=== PATIENT | female | born 1995 | race African-American/Black ===

== ENCOUNTER 2017-07-19 14:27 | Emergency (ER) | payer SELFPAY ==
[2017-07-19 14:49] LABS: Bilirubin Negative (Negative); Blood, Urine Negative (Negative); Glucose, Urine (Dipstick) Negative (Negative); Ketone, Urine Trace mg/dL (Negative); Nitrite Negative (Negative); Protein, Urine (Dipstick) Negative (Neg-Trace)
[2017-07-19 14:52] LABS: Bacteria/HPF 1+ HPF (None Seen); Hyaline Casts/LPF 4-6 HYALINE CAST LPF (0-3 Hyaline); WBC/HPF 21-50 HPF (0-3)
[2017-07-19] MEDS ORDERED: Ondansetron ODT 4 MG TAB ONE (15:17)
== END 2017-07-19 15:09 | disposition home or self-care (01) ==
LOC: ERS 14:27
DX: O23.41 Unspecified infection of urinary tract in pregnancy, first trimester (principal); Z3A.01 Less than 8 weeks gestation of pregnancy
CPT/HCPCS: 81003; 81015; 81025; 99284; Q0162

== ENCOUNTER 2017-08-04 17:58 | Emergency (ER) | payer SELFPAY ==
[2017-08-04] MEDS ORDERED: Ondansetron HCl/PF 4 MG/2 ML Vial ONE (18:43)
[2017-08-04] MEDS ORDERED: Acetaminophen 500 MG TAB ONE (18:43)
[2017-08-04 18:55] LABS: #Eosinphils 0.1 thou/uL (0.0-0.7); #Lymphocytes 1.7 thou/uL (1.20-3.40); #Monocytes 0.4 thou/uL (0.11-0.59); %Basophils 0.1 % (0.0-1.0); %Lymphocytes 27.1 % (21.0-51.0); %Monocytes 6.6 % (0.0-10.0); Hematocrit 40.1 % (36.0-47.0); Mean Platelet Volume 7.8 fL (7.4-10.4); Red Blood Cell (RBC) Count 4.63 mill/uL (4.20-5.40); White Blood Cell (WBC) Count 6.1 thou/uL (4.8-10.8)
[2017-08-04 19:10] LABS: Bilirubin Negative (Negative); Blood, Urine Negative (Negative); Glucose, Urine (Dipstick) Negative (Negative); Ketone, Urine Negative (Negative); Nitrite Negative (Negative); Protein, Urine (Dipstick) Negative (Neg-Trace)
[2017-08-04 19:17] LABS: Bacteria/HPF Rare-Few HPF (None Seen); Hyaline Casts/LPF 4-6 HYALINE CAST LPF (0-3 Hyaline); WBC/HPF 21-50 HPF (0-3)
== END 2017-08-04 21:05 | disposition home or self-care (01) ==
LOC: ERS 17:58
DX: O23.41 Unspecified infection of urinary tract in pregnancy, first trimester (principal); O99.89 Other specified diseases and conditions complicating pregnancy, childbirth and the puerperium; R51 Headache; Z3A.01 Less than 8 weeks gestation of pregnancy
CPT/HCPCS: 36415; 81003; 81015; 84702; 85025; 96361; 96374; J2405

== ENCOUNTER 2017-08-07 12:54 | Emergency (ER) | payer MEDICAID, SELFPAY ==
[2017-08-07 13:38] LABS: #Eosinphils 0.1 thou/uL (0.0-0.7); #Lymphocytes 1.1 thou/uL (1.20-3.40); #Monocytes 0.3 thou/uL (0.11-0.59); #Neutrophils 5.9 thou/uL (1.40-6.50); %Basophils 0.6 % (0.0-1.0); %Eosinophils 1.2 % (0.0-10.0); %Lymphocytes 15.1 % (21.0-51.0); %Monocytes 4.1 % (0.0-10.0); Hematocrit 41.5 % (36.0-47.0); Mean Platelet Volume 8.2 fL (7.4-10.4); Red Blood Cell (RBC) Count 4.81 mill/uL (4.20-5.40); White Blood Cell (WBC) Count 7.4 thou/uL (4.8-10.8)
--- NOTE | 2017-08-07 14:34 | ULT ---
ULTRASOUND PELVIC ULTRASOUND TRANSVAGINAL DOPPLER DUPLEX: DATE: 08-07-17 HISTORY: 22-year-old female in first trimester of with sudden onset of vaginal bleeding. TECHNIQUE: Transabdominal transducer used to evaluate intrapelvic contents using the urinary bladder as an acou stic window. Endovaginal transducer used to visualize intrapelvic contents in greater detail. Color flow Doppler and Pulsed Doppler spectral waveform analysis of ovaries. FINDINGS: There is an intrauterine gestational sac containing an embryonic pole with crown-rump length of 0.8 cm, corresponding to 6 w 5 d. heart rate is 120 bpm. Adjacent to the gestational sac, there is a patchy, irregular, approximately 1.5 x 0.5 cm region of moderately low echogenicity. It is uncertain whether this is a small subchorionic hemorrhage or not. No significant free fluid in the cul-de-sac. Left ovary could not be found. There is a structure me asuring 2.5 x 2.5 x 3 cm which was labeled as the right ovary by the secured entrance monitor. No color flow is s een within it, but there is pulse doppler flow demonstrated in it. It does not have the typical appe arance for an ovary, especially on the sagittal images, on which its margins appear to be very irreg ular. IMPRESSION: 1. Live first trimester intrauterine gestation estimated to be 6 weeks 5 days. 2. Questionable small subchorionic hemorrhage versus artifact. PACO Hazel POS: MARSHALL
== END 2017-08-07 16:13 | disposition home or self-care (01) ==
LOC: ERS 12:54
DX: O20.0 Threatened abortion (principal); Z3A.01 Less than 8 weeks gestation of pregnancy
CPT/HCPCS: 36415; 76856; 84702; 85025; 86900; 86901; 87480; 87491; 87510; 87591; 87660; 93976

== ENCOUNTER 2017-08-14 01:06 | Emergency (ER) | payer MEDICAID, OTHER ==
[2017-08-14] MEDS ORDERED: Ondansetron HCl/PF 4 MG/2 ML Vial ONE (01:49)
[2017-08-14 02:39] LABS: #Eosinphils 0.2 thou/uL (0.0-0.7); #Lymphocytes 1.9 thou/uL (1.20-3.40); #Monocytes 0.5 thou/uL (0.11-0.59); #Neutrophils 4.7 thou/uL (1.40-6.50); %Basophils 0.1 % (0.0-1.0); %Eosinophils 2.8 % (0.0-10.0); %Lymphocytes 26.2 % (21.0-51.0); %Monocytes 6.7 % (0.0-10.0); Hematocrit 38.3 % (36.0-47.0); Mean Platelet Volume 8.7 fL (7.4-10.4); Red Blood Cell (RBC) Count 4.38 mill/uL (4.20-5.40); White Blood Cell (WBC) Count 7.3 thou/uL (4.8-10.8)
--- NOTE | 2017-08-14 08:58 | ULT ---
PRELIMINARY REPORT/[facility]/EMERGENCY AFTER HOURS PROCEDURE: EXAM: US After First Trimester CLINICAL HISTORY: 22 years old, female; Pain and signs and symptoms; Lmp or gestational age (in weeks): 7w4d; Antepart um complications; Bleeding; complicated by abdominal or pelvic pain; Other: Ml to llq pelv ic pain; ; Patient HX: Vaginal bleeding x 1 day TECHNIQUE: Real-time obstetrical ultrasound of the maternal pelvis and a second or third trimester wi th image documentation. COMPARISON: No relevant prior studies available. FINDINGS: Fetus: Single live intrauterine gestation. Candel[place] Aren[place]-rump length correlates with estimated gestational a ge of 7 weeks 4 days. Heart rate: heart rate 153 beats per minute. Amniotic fluid: Unremarkable. MATERNAL: Uterus: Unremarkable. No myometrial mass. Adnexa: Normal left ovary with normal Doppler signal. Normal right ovary with normal Doppler signal. Free fluid: No perceptible free fluid. IMPRESSION: Single live intrauterine gestation as above. EXAM: US Pelvis, Transvaginal EXAM DATE/TIME: Exam ordered 08/14/2017 2:07 AM CLINICAL HISTORY: 22 years old, female; Pain and signs and symptoms; Lmp or gestational age (in weeks): 7w4d; Antepart um complications; Bleeding; complicated by abdominal or pelvic pain; Other: Ml to llq pelv ic pain; ; Patient HX: Vaginal bleeding x 1 day TECHNIQUE: Real-time transvaginal pelvic ultrasound (complete) with image documentation. Transvaginal imaging w as used for better evaluation of the endometrium and adnexa. COMPARISON: No relevant prior studies available. FINDINGS: Uterus/cervix: Unremarkable. Normal endometrial stripe thickness. No myometrial mass. Right ovary: Normal right ovary with normal Doppler signal. Normal blood flow. Left ovary: Normal left ovary with normal Doppler signal. Normal blood flow. Free fluid: Trace free fluid in the posterior pelvic cul-de-sac. Other findings: Equivocal small subchorionic hematoma. Single live intrauterine gestation. Crownrump length correlates with estimated gestational age of 7 weeks 4 days. heart rate 149 beats per minute. IMPRESSION: 1. Single live intrauterine gestation as above. 2. Equivocal small subchorionic hematoma. Thank you for allowing us to participate in the care of your patient. Dictated and Authenticated by: Earl Collazo MD 08/14/2017 3:03 AM Central Time ([place] \T\ [place]) FINAL REPORT EMERGENCY AFTER HOURS PELVIC ULTRASOUND: Date: 08/14/17 HISTORY: Vaginal bleeding. Nausea and vomiting. IMPRESSION: 1. Evidence of single intrauterine gestation with pole and yolk sac visualized. Cardiac Doppl er does demonstrate heart tones with heart rate of 149 beats/minute. 2. Gestational age by measurement of crown-rump length is 7 weeks and 4 days. 3. Hypoechoic area within the endometrial canal which is in a subchorionic location and distal to t he level of the gestational sac, which may be related to hemorrhage in this region. This measures 3. 3 cm x 0.7 cm. 4. Normal appearing bilateral ovaries with arterial flow documented in each ovary. Findings are in agreement with the preliminary report by [facility]. [facility] notes that subchorionic hemorrha ge is an equivocal finding; however, images do suggest there is evidence of a subchorionic hemorrhag e. Continued follow-up evaluation is recommended. POS: MARSHALL
== END 2017-08-14 03:35 | disposition home or self-care (01) ==
LOC: ERS 01:06
DX: O20.0 Threatened abortion (principal); Z3A.01 Less than 8 weeks gestation of pregnancy
CPT/HCPCS: 36415; 76856; 84702; 85025; 96361; 96374; J2405

== ENCOUNTER 2017-10-23 18:07 | Emergency (ER) | payer MEDICAID, OTHER ==
[2017-10-23 18:34] LABS: Bilirubin Negative (Negative); Blood, Urine Negative (Negative); Clarity Slightly Cloudy (Clear); Glucose, Urine (Dipstick) Negative (Negative); Leukocyte Negative (Negative); Nitrite Negative (Negative); Protein, Urine (Dipstick) 30 mg/dL (Neg-Trace); Specific Gravity, Urine 1.025 (1.002-1.036); pH, Urine 6.5 (5.0-9.0)
[2017-10-23 18:43] LABS: Bacteria/HPF 1+ HPF (None Seen); Hyaline Casts/LPF 0-3 HYALINE CAST LPF (0-3 Hyaline); RBC/HPF 0-3 HPF (0-3)
[2017-10-23 18:56] LABS: Crystals/HPF 1+ SODIUM URATE HPF (Negative)
== END 2017-10-23 20:16 | disposition home or self-care (01) ==
LOC: ERS 18:07
DX: O23.42 Unspecified infection of urinary tract in pregnancy, second trimester (principal); Z3A.19 19 weeks gestation of pregnancy
CPT/HCPCS: 81003; 81015; 99284

== ENCOUNTER 2017-11-28 16:42 | Day surgery (SDC) | payer OTHER ==
[2017-11-28 17:35] VITALS: BMI 25.8
--- NOTE | 2017-11-28 18:06 | PDOC.LDHP ---
Labor and Delivery H&P Chief complaint: other (cramping, rash) HPI: 22 y/o at 23w4d, patient of Dr. Wen, presents with cramping that started this afternoon. She reports she woke up around 1pm and started having small cramps lasting 3-4 seconds a every 3 hours. Denies VB, LOF, ctx, or UTI sx. +FM. Also has a 2 week history of itchy rash over right breast, spreading to left, and to groin. Denies itching of palms or soles. Has not taken anything for symptoms. ROS neg for HEENT, cv, pulm, gi, gu, neuro, psych, musculoskeletal or constitutional symptoms other than mentioned above. OB History Details: 1 prior term Current complications: none Current medications: pre- vitamins Previous surgical history: none Allergies/Adverse Reactions: Allergies Allergy/AdvReac Type Severity Reaction Status Date / Time No Known Allergies Allergy Verified 07/28/14 23:36 Social history: none - Physical Exam Vital signs reviewed and normal: yes General: NAD, resting, other (multiple erythematous patches with excoriations over right breast, minimally over left breast, and left groin.) Lungs: nonlabored breathing Abdomen: gravid Extremeties: no edema FHT: category 1 (140s, mod variability) [place] contractions every: none - Vaginal Exam cm dilated: 0 Effacement: 0% Station: -3 - Assessment 22 y/o at 23w4d with maculopapular rash and mild abdominal cramping. No e/o PTL. Vitals wnl. status reassuring. - Plan -: D/c home with precautions. Comfort measures with Benadryl and Tylenol discussed. Will follow up as scheduled on Friday with Dr. eWn for further evaluation of rash.
[2017-11-28] MEDS ORDERED: FLU VACC QS2017-18 36 mo. & older 0.5 ML SYRINGE IM ONE (18:30)
== END 2017-11-28 18:14 | disposition home or self-care (01) ==
LOC: L&D/OP 16:42
PROVIDERS: ATTEND Family Medicine
DX: O99.89 Other specified diseases and conditions complicating pregnancy, childbirth and the puerperium (principal); R10.9 Unspecified abdominal pain; R21 Rash and other nonspecific skin eruption; Z79.899 Other long term (current) drug therapy; Z3A.23 23 weeks gestation of pregnancy
CPT/HCPCS: 99285

== ENCOUNTER 2017-12-07 18:16 | Emergency (ER) | payer OTHER ==
[2017-12-07] MEDS ORDERED: Acetaminophen 500 MG TAB ONE (19:48)
[2017-12-07 20:02] LABS: Bilirubin Negative (Negative); Blood, Urine Negative (Negative); Clarity CLEAR (Clear); Glucose, Urine (Dipstick) Negative (Negative); Leukocyte Trace (Negative); Nitrite Negative (Negative); Protein, Urine (Dipstick) Negative (Neg-Trace); Specific Gravity, Urine 1.011 (1.002-1.036); pH, Urine 6.5 (5.0-9.0)
[2017-12-07 20:04] LABS: Bacteria/HPF 1+ HPF (None Seen); Hyaline Casts/LPF 0-3 HYALINE CAST LPF (0-3 Hyaline); Pathc Cast-AUWi Flag 0.27 (0-2.49); RBC/HPF 0-3 HPF (0-3); Squamous Epithelial 0-3 HPF (0-3); WBC/HPF 0-3 HPF (0-3)
== END 2017-12-07 20:45 | disposition home or self-care (01) ==
LOC: ERS 18:16
DX: O99.89 Other specified diseases and conditions complicating pregnancy, childbirth and the puerperium (principal); M54.32 Sciatica, left side; Z3A.24 24 weeks gestation of pregnancy
CPT/HCPCS: 81003; 81015; 87086; 99283

== ENCOUNTER 2018-02-14 00:15 | Day surgery (SDC) | payer OTHER ==
[2018-02-14 00:50] VITALS: BMI 29.2
--- NOTE | 2018-02-14 01:06 | PDOC.LDHP ---
Labor and Delivery H&P Chief complaint: abdominal pain HPI: 22 y/o at 34w5d, patient of Dr. Wen, presents with lower abdominal pressure and pain when the baby moves. Denies VB, LOF, ctx, or decreased FM. ROS neg for HEENT, cv, pulm, gi, gu, neuro, psych, skin, musculoskeletal or constitutional symptoms other than mentioned above. OB History Details: 1 prior term Current complications: none Past Medical History: None Current medications: pre- vitamins Previous surgical history: none Allergies/Adverse Reactions: Allergies Allergy/AdvReac Type Severity Reaction Status Date / Time No Known Allergies Allergy Verified 02/14/18 00:44 Social history: none - Physical Exam Vital signs reviewed and normal: yes General: NAD, resting Lungs: nonlabored breathing Abdomen: gravid Extremeties: no edema FHT: category 1 (140s, mod variability, + accels, no decels) [place] contractions every: occasional - Vaginal Exam cm dilated: 0 Effacement: 0% Station: -3 - Assessment 22 [id number] at 34w5d with musculoskeletal discomforts of . status reassuring with reactive NST. - Plan -: D/c home with precautions. Advised to keep all appointments. UA pending - will call if needs treatment.
== END 2018-02-14 01:24 | disposition home or self-care (01) ==
LOC: L&D/OP 00:15
PROVIDERS: ATTEND Family Medicine
DX: O99.89 Other specified diseases and conditions complicating pregnancy, childbirth and the puerperium (principal); R10.30 Lower abdominal pain, unspecified; Z3A.34 34 weeks gestation of pregnancy; Z79.899 Other long term (current) drug therapy
CPT/HCPCS: 59025; 99283

== ENCOUNTER 2018-06-15 18:23 | Emergency (ER) | payer OTHER, SELFPAY ==
[2018-06-15] MEDS ORDERED: Ibuprofen 200 MG TAB ONE (19:17)
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
== END 2018-06-15 19:46 | disposition home or self-care (01) ==
LOC: ERS 18:23
DX: S40.021A Contusion of right upper arm, initial encounter (principal); W10.9XXA Fall (on) (from) unspecified stairs and steps, initial encounter

== ENCOUNTER 2018-06-16 22:40 | Emergency (ER) | payer OTHER ==
[2018-06-16] MEDS ORDERED: diphenhydrAMINE 50 MG/ML VIAL ONE (23:55)
[2018-06-16] MEDS ORDERED: Metoclopramide HCl 10 MG/2 ML VIAL ONE (23:55)
--- NOTE | 2018-06-17 09:58 | CT ---
PRELIMINARY REPORT/[facility]/EMERGENTY AFTER-HOURS PROCEDURE CT Head Without Intravenous Contrast CLINICAL HISTORY: 22 years old, female; Pain; Headache; Headache not specified; Patient HX: F21 presents to ed for a he adache, new onset. Pt indicates her pain is most severe over l parietal lobe moving to l cheek. Pt sa ys she is lightheaded and has blurred vision. Pt came in for a fall yesterday but denies having hit h er head, loc. Pt deneis fever, neck pain, nausea. TECHNIQUE: Axial computed tomography images of the head/brain without intravenous contrast. COMPARISON: No relevant prior studies available. FINDINGS: No definite acute skull fracture. Included paranasal sinuses are essentially clear. No acute intracranial hemorrhage or mass effect. Ventricle size is normal for age. No definite acute infarct by CT. IMPRESSION: No acute intracranial bleed or mass effect. Thank you for allowing us to participate in the care of your patient. Dictated and Authenticated by: Leo Infante MD 06/17/2018 12:55 AM Central Time ([place] & [place]) FINAL REPORT BRAIN CT WITHOUT CONTRAST: EMERGENCY AFTER HOURS EXAM AT 12:29 A.M. DATE: 06-17-18 FINDINGS: Minimal motion artifact. No mass or bleed or other acute process. Code QA - I agree with [facility]. POS: MARSHALL
== END 2018-06-17 01:05 | disposition home or self-care (01) ==
LOC: ERS 22:40
DX: R51 Headache (principal)
CPT/HCPCS: 70450; 96365; 96375; J1200; J2765

== ENCOUNTER 2018-07-10 03:04 | Emergency (ER) | payer MEDICAID, OTHER, SELFPAY ==
[2018-07-10] MEDS ORDERED: Ketorolac Tromethamine 60 MG/2 ML VIAL ONE (04:41)
== END 2018-07-10 05:05 | disposition home or self-care (01) ==
LOC: ERS 03:04
DX: K08.89 Other specified disorders of teeth and supporting structures (principal)
CPT/HCPCS: 96372; J1885

== ENCOUNTER 2018-07-15 02:34 | Emergency (ER) | payer OTHER, SELFPAY ==
[2018-07-15 02:54] LABS: Bilirubin Negative (Negative); Blood, Urine Negative (Negative); Clarity CLEAR (Clear); Glucose, Urine (Dipstick) Negative (Negative); Leukocyte Trace (Negative); Nitrite Negative (Negative); Protein, Urine (Dipstick) 30 mg/dL (Neg-Trace); Specific Gravity, Urine 1.037 (1.002-1.036)
[2018-07-15 02:57] LABS: Bacteria/HPF Rare-Few HPF (None Seen); Hyaline Casts/LPF 4-6 HYALINE CAST LPF (0-3 Hyaline); Pathc Cast-AUWi Flag 1.45 (0-2.49)
[2018-07-15 03:02] LABS: Pregnancy Test - Urine (BHCG) Negative (Negative); Pregu Control Background? CLEAR/WHITE (CLR/WHITE); Pregu Control Bar Appear? YES (CONTROL BAR); Specific Gravity 1.037 (1.002-1.036)
[2018-07-15 03:12] LABS: RBC/HPF None Seen HPF (0-3)
[2018-07-16 23:15] LABS: Chlamydia by PCR Not Detected (NotDetected); GC by PCR Not Detected (NotDetected)
== END 2018-07-15 03:37 | disposition home or self-care (01) ==
LOC: ERS 02:34
DX: N76.4 Abscess of vulva (principal); R11.10 Vomiting, unspecified
CPT/HCPCS: 81003; 81015; 81025; 87077; 87086; 87480; 87491; 87510; 87591; 87660; 99283

== ENCOUNTER 2018-10-12 17:56 | Emergency (ER) | payer MEDICAID, SELFPAY ==
[2018-10-12 18:55] LABS: Bilirubin Negative (Negative); Blood, Urine Large (Negative); Glucose, Urine (Dipstick) Negative (Negative); Protein, Urine (Dipstick) > or equal to 300 mg/dL (Neg-Trace)
[2018-10-12 18:57] LABS: Clarity Opaque (Clear)
[2018-10-12 19:05] LABS: Nitrite Unable to Interpret (Negative); Specific Gravity, Urine 1.021 (1.002-1.036)
[2018-10-12 19:06] LABS: Leukocyte Unable to Interpret (Negative); Urobilinogen UNABLE TO INTERPRET mg/dL (0.2-1.0); pH, Urine 6.5 (5.0-9.0)
[2018-10-12 19:16] LABS: Hyaline Casts/LPF NONE SEEN LPF (0-3 Hyaline); RBC/HPF GREATER THAN 50-TNTC HPF (0-3)
[2018-10-12 19:16] LABS: #Basophils 0.1 thou/uL (0.0-0.2); #Eosinphils 0.1 thou/uL (0.0-0.7); #Lymphocytes 1.6 thou/uL (1.20-3.40); #Monocytes 0.5 thou/uL (0.11-0.59); #Neutrophils 3.9 thou/uL (1.40-6.50); %Basophils 1.1 % (0.0-1.0); %Eosinophils 1.4 % (0.0-10.0); %Lymphocytes 26.3 % (21.0-51.0); %Monocytes 8.1 % (0.0-10.0); %Neutrophils 63.1 % (42.0-75.0); Hemoglobin 11.2 g/dL (12.0-16.0); Mean Corpuscular HGB CONC 31.8 g/dL (32.0-36.0); Mean Corpuscular Hemoglobin 23.9 pg (27.0-31.0); Mean Corpuscular Volume 75.4 fL (78.0-98.0); Mean Platelet Volume 9.9 fL (7.4-10.4); Platelet Count 226 thou/uL (130-400); RBC Distribution Width 15.2 % (11.5-14.5); Red Blood Cell (RBC) Count 4.69 mill/uL (4.20-5.40); White Blood Cell (WBC) Count 6.1 thou/uL (4.8-10.8)
[2018-10-12 19:17] LABS: Bacteria/HPF 2+ HPF (None Seen); WBC/HPF 21-50 HPF (0-3)
== END 2018-10-12 21:09 | disposition home or self-care (01) ==
LOC: ERS 17:56
DX: O20.9 Hemorrhage in early pregnancy, unspecified (principal); O23.41 Unspecified infection of urinary tract in pregnancy, first trimester; O99.011 Anemia complicating pregnancy, first trimester; Z3A.01 Less than 8 weeks gestation of pregnancy
CPT/HCPCS: 36415; 81003; 81015; 84702; 85025; 86850; 86900; 86901; 87086; 99284

== ENCOUNTER 2018-11-14 11:12 | Emergency (ER) | payer MEDICAID, OTHER ==
[2018-11-14 11:47] LABS: Bilirubin Negative (Negative); Blood, Urine Small (Negative); Clarity CLOUDY (Clear); Glucose, Urine (Dipstick) Negative (Negative); Leukocyte Large (Negative); Nitrite Negative (Negative); Protein, Urine (Dipstick) 300 mg/dL (Neg-Trace); Specific Gravity, Urine 1.018 (1.002-1.036); Urobilinogen 0.2 mg/dL (0.2-1.0); pH, Urine 7.5 (5.0-9.0)
[2018-11-14 11:49] LABS: Bacteria/HPF 1+ HPF (None Seen); Hyaline Casts/LPF 0-3 HYALINE CAST LPF (0-3 Hyaline); Pathc Cast-AUWi Flag 0.29 (0-2.49)
[2018-11-14 11:52] LABS: Pregu Control Background? CLEAR/WHITE (CLR/WHITE); Pregu Control Bar Appear? YES (CONTROL BAR); Specific Gravity 1.018 (1.002-1.036)
[2018-11-14 11:54] LABS: Pregnancy Test - Urine (BHCG) Negative (Negative)
[2018-11-14] MEDS ORDERED: Ondansetron ODT 4 MG TAB ONE (12:00)
[2018-11-19 02:08] LABS: Chlamydia by PCR Inconclusive (NotDetected); GC by PCR Inconclusive (NotDetected)
== END 2018-11-14 13:52 | disposition home or self-care (01) ==
LOC: ERS 11:12
DX: N12 Tubulo-interstitial nephritis, not specified as acute or chronic (principal); N89.8 Other specified noninflammatory disorders of vagina; D64.9 Anemia, unspecified
CPT/HCPCS: 81003; 81015; 81025; 87077; 87086; 87480; 87491; 87510; 87591; 87660; 99284; Q0162

== ENCOUNTER 2019-01-25 18:37 | Emergency (ER) | payer OTHER ==
[2019-01-25 20:40] LABS: Pregnancy Test - Urine (BHCG) Negative (Negative); Pregu Control Background? CLEAR/WHITE (CLR/WHITE); Pregu Control Bar Appear? YES (CONTROL BAR); Specific Gravity 1.031 (1.002-1.036)
== END 2019-01-25 21:00 | disposition home or self-care (01) ==
LOC: ERS 18:37
DX: S00.83XA Contusion of other part of head, initial encounter (principal); D64.9 Anemia, unspecified; Y04.8XXA Assault by other bodily force, initial encounter
CPT/HCPCS: 81025; 99283

== ENCOUNTER 2019-03-17 22:33 | Emergency (ER) | payer OTHER, SELFPAY ==
[2019-03-17 23:19] LABS: #Basophils 0.1 thou/uL (0.0-0.2); #Eosinphils 0.1 thou/uL (0.0-0.7); #Lymphocytes 2.4 thou/uL (1.20-3.40); #Monocytes 0.4 thou/uL (0.11-0.59); #Neutrophils 3.1 thou/uL (1.40-6.50); %Basophils 0.8 % (0.0-1.0); %Eosinophils 1.8 % (0.0-10.0); %Lymphocytes 40.2 % (21.0-51.0); %Monocytes 6.2 % (0.0-10.0); Hemoglobin 12.1 g/dL (12.0-16.0); Mean Corpuscular HGB CONC 32.9 g/dL (32.0-36.0); Mean Corpuscular Hemoglobin 26.3 pg (27.0-31.0); Mean Corpuscular Volume 80.1 fL (78.0-98.0); Mean Platelet Volume 9.6 fL (7.4-10.4); Platelet Count 206 thou/uL (130-400); RBC Distribution Width 15.4 % (11.5-14.5); White Blood Cell (WBC) Count 6.1 thou/uL (4.8-10.8)
--- NOTE | 2019-03-17 23:26 | RAD ---
EXAM: CHEST ONE VIEW HISTORY: Chest pain and dizziness. COMPARISON: None FINDINGS: The cardiac silhouette and pulmonary vasculature is within normal limits. The lungs are clear. The os seous structures are intact. IMPRESSION: No acute cardiopulmonary process.
[2019-03-17] MEDS ORDERED: Lidocaine Viscous Sol 2% 15 ml UD Cup ONE (23:37)
[2019-03-17] MEDS ORDERED: Mag-Al 1200 mg/1200 mg/30 ML UDCUP ONE (23:37)
[2019-03-17] MEDS ORDERED: Acetaminophen 500 MG TAB ONE (23:37)
[2019-03-17 23:39] LABS: ALT (SGPT) 9 U/L (8-55); AST (SGOT) 16 U/L (5-34); Albumin 3.9 g/dL (3.5-5.0); Alkaline Phosphatase 53 U/L (40-150); Anion Gap 10 mmol/L (10-20); BUN (Urea Nitrogen) 9 mg/dL (7.0-18.7); Bilirubin, Total Less than 0.2 mg/dL (0.2-1.2); CK (CPK) 341 U/L (29-168); Calc. Creatinine Clearance 0 mL/min (70-130); Calcium 9.2 mg/dL (7.8-10.44); Carbon Dioxide 27 mmol/L (22-29); Chloride 106 mmol/L (98-107); Estimated GFR-MDRD 88; Globulin 3.1 g/dL (2.4-3.5); Glucose 76 mg/dL (70-105); Potassium 4.1 mmol/L (3.5-5.1); Sodium 139 mmol/L (136-145)
--- NOTE | 2019-03-18 08:23 | ULT ---
PRELIMINARY REPORT/[facility]/EMERGENCY AFTER HOURS PROCEDURE: EXAM: US First Trimester, Transabdominal and US , Transvaginal EXAM DATE/TIME: 03/17/2019 11:55 PM CLINICAL HISTORY: 23 years old, female; Pain and signs and symptoms; Lmp or gestational age (in weeks): 12/08/2018; Ant epartum complications; complicated by abdominal or pelvic pain; First trimester; ; Patient HX: Heavy vaginal bleeding w/clots x 1 day, n/v, pelvic pain and lower back painsh; Additional info: PT also reports a large amount of vaginal bleeding today, noting time of onset to be the same as onset of cp. PT states bleeding due to miscarriage. Lmp in November of this year. Pregna ncy confirmed with at home urine test, with positive result in February. She notes that she soaked through x 3 pads. PT had not yet had her initial ob appointment. Denies abd pain. TECHNIQUE: Imaging protocol: Real-time transabdominal obstetrical ultrasound of the maternal pelvis and a first trimester , less than 14 weeks 0 days, with image documentation. Transvaginal imaging was us ed for better evaluation of the fetus and adnexa. COMPARISON: No relevant prior studies available. FINDINGS: The uterus is empty. No visible intra or extrauterine gestational sac. Endometrial thickness is 7 mm. Small amount of cul-de-sac fluid. Small simple appearing cyst in the left ovary, measuring 17 x 11 x 11 mm. Maternal ovaries/adnexa otherwise appear essentially unremarkable. Blood flow detected in each ovary. The sonographic appearance alone is nonspecific. The differential diagnosis includes; an early viable intrauterine less than four to five we eks gestation; a miscarriage; as well as an occult ectopic . Appropriate clinical follow up, including HCG level follow-up is recommended. The urinary bladder was not completely evaluated/imaged at this time. Endovaginal scanning provided better visualization/evaluation of the endometrium, as discussed above. IMPRESSION: 1. No visible intra or extrauterine gestational sac. 2. See above discussion and recommendations. 3. Small cyst in the left ovary, measuring 17 x 11 x 11 mm. 4. Small amount of cul-de-sac fluid. 5. Other details discussed above. Thank you for allowing us to participate in the care of your patient. Dictated and Authenticated by: Leo Infante MD 03/18/2019 1:54 AM Central Time ([place] & [place]) FINAL REPORT PELVIC ULTRASOUND: Date: 03/17/19 HISTORY: Pelvic pain. COMPARISON: 08/14/17. TECHNIQUE: Transabdominal and endovaginal imaging of the pelvis performed. Ovaries interrogated with Hammonds scale, color flow, Doppler imaging, and spectral waveform analysis. FINDINGS: This report is in agreement with the preliminary report by [facility]. No myometrial masses. No abnormality within the endometrium. Endometrial diameter is 0.7 cm. There is a simple cyst in the left ovary as described in the preliminary report by [facility]. There is vascular flow to both ovaries. Small amount of nonspecific fluid in the cul-de-sac. IMPRESSION: Unremarkable pelvic ultrasound. POS: OFF
[2019-03-19 00:25] LABS: Chlamydia by PCR Not Detected (NotDetected); GC by PCR Not Detected (NotDetected)
--- NOTE | 2019-03-20 17:00 | EKG ---
Test Reason : Blood Pressure : / mmHG Vent. Rate : 055 BPM Atrial Rate : 055 BPM P-R Int : 162 ms QRS Dur : 072 ms QT Int : 388 ms P-R-T Axes : 054 046 042 degrees QTc Int : 371 ms Sinus bradycardia Confirmed by CONOR FLETCHER DO ([id number]), photograph editor HARITHA DEAN ([id number]) on 03/20/2019 5:00:06 PM Referred By: Confirmed By:CONOR FLETCHER DO
== END 2019-03-18 02:42 | disposition home or self-care (01) ==
LOC: ERS 22:33
DX: R07.9 Chest pain, unspecified (principal); N93.9 Abnormal uterine and vaginal bleeding, unspecified; D64.9 Anemia, unspecified
CPT/HCPCS: 36415; 71045; 76856; 80053; 82550; 84484; 84702; 85025; 86900; 86901; 87480; 87491; 87510; 87591; 87660; 93005

== ENCOUNTER 2019-03-29 22:35 | Emergency (ER) | payer SELFPAY ==
--- NOTE | 2019-03-29 23:47 | RAD ---
XR Chest 1 View Portable HISTORY: Chest pain COMPARISON: 03/17/2019 study FINDINGS: Heart size and mediastinum are within normal limits. The lungs are clear of infiltrates. No significant bony findings. IMPRESSION: Unremarkable chest.
[2019-03-30] MEDS ORDERED: Ibuprofen 200 MG TAB ONE (00:02)
--- NOTE | 2019-04-03 12:27 | EKG ---
Test Reason : Blood Pressure : / mmHG Vent. Rate : 055 BPM Atrial Rate : 055 BPM P-R Int : 154 ms QRS Dur : 072 ms QT Int : 406 ms P-R-T Axes : 052 052 035 degrees QTc Int : 388 ms Sinus bradycardia Otherwise normal ECG Confirmed by BURT JULIO ([id number]), brands editor HARITHA DEAN ([id number]) on 04/03/2019 12:26:35 PM Referred By: Confirmed By:BURT JULIO
== END 2019-03-30 00:07 | disposition home or self-care (01) ==
LOC: ERS 22:35
DX: S29.012A Strain of muscle and tendon of back wall of thorax, initial encounter (principal); D64.9 Anemia, unspecified; X58.XXXA Exposure to other specified factors, initial encounter
CPT/HCPCS: 71045; 93005

== ENCOUNTER 2019-04-14 18:02 | Emergency (ER) | payer SELFPAY ==
[2019-04-14 18:34] LABS: #Eosinphils 0.1 thou/uL (0.0-0.7); #Monocytes 0.4 thou/uL (0.11-0.59); #Neutrophils 3.4 thou/uL (1.40-6.50); %Basophils 0.3 % (0.0-1.0); %Eosinophils 1.9 % (0.0-10.0); %Lymphocytes 33.2 % (21.0-51.0); %Neutrophils 57.7 % (42.0-75.0); Hemoglobin 12.1 g/dL (12.0-16.0); Mean Corpuscular HGB CONC 32.8 g/dL (32.0-36.0); Mean Corpuscular Hemoglobin 26.7 pg (27.0-31.0); Mean Corpuscular Volume 81.4 fL (78.0-98.0); Mean Platelet Volume 9.3 fL (7.4-10.4); Platelet Count 207 thou/uL (130-400); RBC Distribution Width 14.9 % (11.5-14.5); Red Blood Cell (RBC) Count 4.56 mill/uL (4.20-5.40); White Blood Cell (WBC) Count 5.9 thou/uL (4.8-10.8)
[2019-04-14 18:54] LABS: Bilirubin Negative (Negative); Blood, Urine Trace (Negative); Glucose, Urine (Dipstick) Negative (Negative); Leukocyte Small (Negative); Nitrite Positive (Negative); Protein, Urine (Dipstick) 30 mg/dL (Neg-Trace)
[2019-04-14 18:57] LABS: Clarity Cloudy (Clear)
[2019-04-14 18:58] LABS: Pregnancy Test - Urine (BHCG) Negative (Negative); Pregu Control Background? CLEAR/WHITE (CLR/WHITE); Pregu Control Bar Appear? YES (CONTROL BAR); Specific Gravity 1.025 (1.002-1.036)
[2019-04-14 18:58] LABS: ALT (SGPT) 11 U/L (8-55); AST (SGOT) 26 U/L (5-34); Alkaline Phosphatase 51 U/L (40-150); Anion Gap 12 mmol/L (10-20); BUN (Urea Nitrogen) 14 mg/dL (7.0-18.7); Bilirubin, Total 0.3 mg/dL (0.2-1.2); Calc. Creatinine Clearance 0 mL/min (70-130); Calcium 9.7 mg/dL (7.8-10.44); Carbon Dioxide 20 mmol/L (22-29); Chloride 109 mmol/L (98-107); Estimated GFR-MDRD Greater than 90; Globulin 3.4 g/dL (2.4-3.5); Glucose 89 mg/dL (70-105); Potassium 4.3 mmol/L (3.5-5.1); Protein, Total 7.4 g/dL (6.0-8.3); Sodium 137 mmol/L (136-145)
[2019-04-14 19:03] LABS: RBC/HPF 0-3 HPF (0-3); WBC/HPF Greater Than 50 HPF (0-3)
[2019-04-14 19:04] LABS: Bacteria/HPF 3+ HPF (None Seen)
[2019-04-14] MEDS ORDERED: Ondansetron ODT 4 MG TAB ONE (19:44)
== END 2019-04-14 20:34 | disposition home or self-care (01) ==
LOC: ERS 18:02
DX: N39.0 Urinary tract infection, site not specified (principal)
CPT/HCPCS: 36415; 80053; 81003; 81015; 81025; 85025; 99284; Q0162

== ENCOUNTER 2019-05-13 20:04 | Emergency (ER) | payer OTHER, SELFPAY ==
[2019-05-13] MEDS ORDERED: Metoclopramide HCl 10 MG/2 ML VIAL ONE ×2 (20:57→21:05)
[2019-05-13] MEDS ORDERED: diphenhydrAMINE 50 MG/ML VIAL ONE (20:57)
[2019-05-13 21:19] LABS: Pregnancy Test - Urine (BHCG) Negative (Negative); Pregu Control Background? CLEAR/WHITE (CLR/WHITE); Pregu Control Bar Appear? YES (CONTROL BAR); Specific Gravity 1.022 (1.002-1.036)
== END 2019-05-13 22:03 | disposition home or self-care (01) ==
LOC: ERS 20:04
DX: R11.2 Nausea with vomiting, unspecified (principal); R19.7 Diarrhea, unspecified; R51 Headache; D64.9 Anemia, unspecified
CPT/HCPCS: 81025; 96361; 96374; 96375; J1200; J2765

== ENCOUNTER 2019-06-04 17:47 | Emergency (ER) | payer OTHER ==
[2019-06-04 18:29] LABS: Pregnancy Test - Urine (BHCG) Negative (Negative); Pregu Control Background? CLEAR/WHITE (CLR/WHITE); Pregu Control Bar Appear? YES (CONTROL BAR); Specific Gravity 1.032 (1.002-1.036)
[2019-06-04] MEDS ORDERED: Ibuprofen 800 MG TAB ONE (18:39)
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
== END 2019-06-04 19:40 | disposition home or self-care (01) ==
LOC: ERS 17:47
DX: S00.83XA Contusion of other part of head, initial encounter (principal); M25.511 Pain in right shoulder; F41.9 Anxiety disorder, unspecified; D64.9 Anemia, unspecified; V43.52XA Car driver injured in collision with other type car in traffic accident, initial encounter
CPT/HCPCS: 70486; 81025

== ENCOUNTER 2019-08-10 11:23 | Emergency (ER) | payer OTHER ==
[2019-08-10 11:52] LABS: #Eosinphils 0.1 thou/uL (0.0-0.7); #Lymphocytes 1.8 thou/uL (1.20-3.40); #Monocytes 0.4 thou/uL (0.11-0.59); #Neutrophils 2.5 thou/uL (1.40-6.50); %Basophils 0.5 % (0.0-1.0); %Eosinophils 2.2 % (0.0-10.0); %Lymphocytes 37.4 % (21.0-51.0); %Monocytes 8.1 % (0.0-10.0); %Neutrophils 51.7 % (42.0-75.0); Hemoglobin 13.2 g/dL (12.0-16.0); Mean Corpuscular HGB CONC 32.3 g/dL (32.0-36.0); Mean Corpuscular Hemoglobin 27.8 pg (27.0-31.0); Mean Corpuscular Volume 86.1 fL (78.0-98.0); Mean Platelet Volume 8.9 fL (7.4-10.4); Platelet Count 212 thou/uL (130-400); RBC Distribution Width 12.9 % (11.5-14.5); Red Blood Cell (RBC) Count 4.75 mill/uL (4.20-5.40); White Blood Cell (WBC) Count 4.8 thou/uL (4.8-10.8)
[2019-08-10 11:59] LABS: BHCG - Serum Negative (NEGATIVE); Pregs Control Background? CLEAR/WHITE (CLR/WHITE); Pregs Control Bar Appear? YES (CONTROL BAR)
[2019-08-10 12:20] LABS: ALT (SGPT) 11 U/L (8-55); AST (SGOT) 16 U/L (5-34); Albumin 4.2 g/dL (3.5-5.0); Alkaline Phosphatase 64 U/L (40-110); Anion Gap 9 mmol/L (10-20); BUN (Urea Nitrogen) 10 mg/dL (7.0-18.7); Bilirubin, Total 0.4 mg/dL (0.2-1.2); Calc. Creatinine Clearance 0 mL/min (70-130); Calcium 9.9 mg/dL (7.8-10.44); Carbon Dioxide 27 mmol/L (22-29); Chloride 107 mmol/L (98-107); Estimated GFR-MDRD Greater than 90; Globulin 3.6 g/dL (2.4-3.5); Glucose 91 mg/dL (70-105); Potassium 3.9 mmol/L (3.5-5.1); Protein, Total 7.8 g/dL (6.0-8.3); Sodium 139 mmol/L (136-145)
== END 2019-08-10 13:31 | disposition home or self-care (01) ==
LOC: ERS 11:23
DX: N93.8 Other specified abnormal uterine and vaginal bleeding (principal); F41.9 Anxiety disorder, unspecified
CPT/HCPCS: 36415; 80053; 84703; 85025; 99284

== ENCOUNTER 2019-09-30 20:47 | Emergency (ER) | payer OTHER ==
[2019-09-30 21:06] LABS: Pregnancy Test - Urine (BHCG) Negative (Negative)
[2019-09-30 21:07] LABS: Pregu Control Background? CLEAR/WHITE (CLR/WHITE); Pregu Control Bar Appear? YES (CONTROL BAR); Specific Gravity 1.028 (1.002-1.036)
[2019-09-30] MEDS ORDERED: Ondansetron ODT 4 MG TAB ONE (21:28)
[2019-09-30 21:39] LABS: Bacteria/HPF 2+ HPF (None Seen); Bilirubin Negative (Negative); Blood, Urine Negative (Negative); Clarity Turbid (Clear); Glucose, Urine (Dipstick) Normal (Negative); Leukocyte 75 Leu/uL (Negative); Mucous/LPF Rare LPF (<2+); Nitrite Negative (Negative); Protein, Urine (Dipstick) 20 mg/dL (Neg-Trace); RBC/HPF 0-3 HPF (0-3); Renal Epithelial 0-3 HPF (None Seen); Squamous Epithelial 21-50 HPF (0-3); WBC/HPF 21-50 HPF (0-3)
== END 2019-09-30 22:23 | disposition left against medical advice (07) ==
LOC: ERS 20:47
DX: R11.10 Vomiting, unspecified (principal); D64.9 Anemia, unspecified
CPT/HCPCS: 81003; 81015; 81025; 99284; Q0162

== ENCOUNTER 2020-01-17 09:31 | Emergency (ER) | payer OTHER, SELFPAY | END 2020-01-17 10:23 | disposition home or self-care (01) | LOC: ERS 09:31 | DX: J06.9 Acute upper respiratory infection, unspecified (principal); D64.9 Anemia, unspecified | CPT/HCPCS: 99281 ==

== ENCOUNTER 2020-02-06 14:12 | Emergency (ER) | payer OTHER | END 2020-02-06 14:39 | disposition home or self-care (01) | LOC: ERS 14:12 | DX: N89.8 Other specified noninflammatory disorders of vagina (principal) | CPT/HCPCS: 99281 ==

== ENCOUNTER 2020-02-18 19:09 | Emergency (ER) | payer OTHER ==
[2020-02-18] MEDS ORDERED: Morphine 4 MG/ML VIAL ONE (19:44)
[2020-02-18] MEDS ORDERED: Acetaminophen 500 MG TAB ONE (19:45)
[2020-02-18 19:54] LABS: #Lymphocytes 0.8 thou/uL (1.20-3.40); #Monocytes 0.4 thou/uL (0.11-0.59); #Neutrophils 7.7 thou/uL (1.40-6.50); %Eosinophils 0.3 % (0.0-10.0); %Lymphocytes 9.1 % (21.0-51.0); %Neutrophils 86.5 % (42.0-75.0); Hemoglobin 12.8 g/dL (12.0-16.0); Mean Corpuscular HGB CONC 32.1 g/dL (32.0-36.0); Mean Corpuscular Hemoglobin 26.7 pg (27.0-31.0); Mean Corpuscular Volume 83.1 fL (78.0-98.0); Mean Platelet Volume 9.6 fL (7.4-10.4); Platelet Count 194 thou/uL (130-400); RBC Distribution Width 14.3 % (11.5-14.5); Red Blood Cell (RBC) Count 4.78 mill/uL (4.20-5.40)
[2020-02-18 20:05] LABS: Bilirubin Negative (Negative); Blood, Urine 1+ (Negative); Clarity Extra Turbid (Clear); Glucose, Urine (Dipstick) Normal (Negative); Leukocyte 500 Leu/uL (Negative); Nitrite Negative (Negative); Protein, Urine (Dipstick) 50 mg/dL (Neg-Trace); Urobilinogen Normal mg/dL (Less than 2); WBC/HPF Greater than 50 HPF (0-3)
[2020-02-18 20:06] LABS: Bacteria/HPF 2+ HPF (None Seen)
[2020-02-18 20:15] LABS: ALT (SGPT) 8 U/L (8-55); AST (SGOT) 13 U/L (5-34); Albumin 4.2 g/dL (3.5-5.0); Alkaline Phosphatase 70 U/L (40-110); Anion Gap 14 mmol/L (10-20); BUN (Urea Nitrogen) 8 mg/dL (7.0-18.7); Bilirubin, Total 0.4 mg/dL (0.2-1.2); Calc. Creatinine Clearance 0 mL/min (70-130); Calcium 9.4 mg/dL (7.8-10.44); Carbon Dioxide 26 mmol/L (22-29); Chloride 102 mmol/L (98-107); Estimated GFR-MDRD Greater than 90; Glucose 85 mg/dL (70-105); Lipase 12 U/L (8-78); Potassium 3.5 mmol/L (3.5-5.1); Protein, Total 8.2 g/dL (6.0-8.3); Sodium 138 mmol/L (136-145)
[2020-02-18 20:21] LABS: BHCG - Serum Negative (NEGATIVE); Pregs Control Background? CLEAR/WHITE (CLR/WHITE); Pregs Control Bar Appear? YES (CONTROL BAR)
--- NOTE | 2020-02-18 20:39 | ULT ---
Sonogram right upper quadrant HISTORY: Right upper quadrant pain. FINDINGS: Gallbladder has a normal appearance without evidence of stones. Common duct is 0.2 cm. Liver unremarkable without focal mass or intrahepatic biliary dilatation. No free fluid. IMPRESSION : Normal exam.
[2020-02-18] MEDS ORDERED: Ketorolac Tromethamine 30 MG/ML VIAL ONE (22:07)
== END 2020-02-18 22:51 | disposition home or self-care (01) ==
LOC: ERS 19:09
DX: N39.0 Urinary tract infection, site not specified (principal); R11.2 Nausea with vomiting, unspecified; D64.9 Anemia, unspecified
CPT/HCPCS: 76705; 80053; 81003; 81015; 83690; 84703; 85025; 96361; 96374; 96375; J1885; J2270

== ENCOUNTER 2020-02-26 19:47 | Emergency (ER) | payer SELFPAY ==
[2020-02-26] MEDS ORDERED: diphenhydrAMINE 50 MG/ML VIAL ONE (20:41)
[2020-02-26] MEDS ORDERED: Acetaminophen 500 MG TAB ONE (20:41)
[2020-02-26] MEDS ORDERED: Metoclopramide HCl 10 MG/2 ML VIAL ONE (20:41)
[2020-02-26] MEDS ORDERED: cefTRIAXone\\ROCEPHIN 2 GM VIAL ONE (20:42)
[2020-02-26 21:00] LABS: #Eosinphils 0.2 thou/uL (0.0-0.7); #Monocytes 0.3 thou/uL (0.11-0.59); #Neutrophils 3.7 thou/uL (1.40-6.50); %Eosinophils 3.6 % (0.0-10.0); %Lymphocytes 31.6 % (21.0-51.0); %Monocytes 5.1 % (0.0-10.0); %Neutrophils 59.7 % (42.0-75.0); Hemoglobin 11.2 g/dL (12.0-16.0); Mean Corpuscular HGB CONC 31.6 g/dL (32.0-36.0); Mean Corpuscular Hemoglobin 26.3 pg (27.0-31.0); Mean Corpuscular Volume 83.4 fL (78.0-98.0); Mean Platelet Volume 8.7 fL (7.4-10.4); Platelet Count 335 thou/uL (130-400); Red Blood Cell (RBC) Count 4.24 mill/uL (4.20-5.40); White Blood Cell (WBC) Count 6.3 thou/uL (4.8-10.8)
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
[2020-02-26 21:21] LABS: ALT (SGPT) 8 U/L (8-55); AST (SGOT) 11 U/L (5-34); Albumin 3.7 g/dL (3.5-5.0); Alkaline Phosphatase 65 U/L (40-110); Anion Gap 13 mmol/L (10-20); BUN (Urea Nitrogen) 10 mg/dL (7.0-18.7); Bilirubin, Total 0.2 mg/dL (0.2-1.2); Calc. Creatinine Clearance 0 mL/min (70-130); Calcium 9.6 mg/dL (7.8-10.44); Carbon Dioxide 28 mmol/L (22-29); Chloride 102 mmol/L (98-107); Estimated GFR-MDRD Greater than 90; Globulin 4.2 g/dL (2.4-3.5); Glucose 87 mg/dL (70-105); Potassium 3.8 mmol/L (3.5-5.1); Protein, Total 7.9 g/dL (6.0-8.3); Sodium 139 mmol/L (136-145)
[2020-02-26 22:12] LABS: CSF, Glucose 52 mg/dl (40-70); CSF, Protein 17 mg/dL (15-40)
[2020-02-26 22:14] LABS: Color Of CSF Supernatant COLORLESS (Colorless); Tube # 2; Unspun CSF Color COLORLESS (Colorless)
[2020-02-26 22:18] LABS: CSF Source CSF; Clarity Clear (Clear); Tube # 1; Tube # 4
== END 2020-02-26 22:42 | disposition home or self-care (01) ==
LOC: ERS 19:47
DX: R51 Headache (principal); M43.6 Torticollis; D64.9 Anemia, unspecified; R50.9 Fever, unspecified
CPT/HCPCS: 36415; 62270; 70450; 80053; 82945; 84157; 85025; 85060; 87070; 87205; 89051; 96365; 96366; 96375; J0696; J1200; J2765

== ENCOUNTER 2020-03-29 15:25 | Emergency (ER) | payer OTHER ==
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
== END 2020-03-29 16:30 | disposition home or self-care (01) ==
LOC: ERS 15:25
DX: M79.641 Pain in right hand (principal); D64.9 Anemia, unspecified

== ENCOUNTER 2020-03-31 15:16 | Emergency (ER) | payer OTHER, SELFPAY ==
[2020-03-31] MEDS ORDERED: Ketorolac Tromethamine 30 MG/ML VIAL ONE (16:43)
[2020-03-31 17:01] LABS: #Lymphocytes 1.2 thou/uL (1.20-3.40); #Monocytes 0.4 thou/uL (0.11-0.59); #Neutrophils 8.2 thou/uL (1.40-6.50); %Basophils 0.2 % (0.0-1.0); %Eosinophils 0.2 % (0.0-10.0); %Lymphocytes 11.9 % (21.0-51.0); %Neutrophils 83.6 % (42.0-75.0); Hemoglobin 13.3 g/dL (12.0-16.0); Mean Corpuscular HGB CONC 32.7 g/dL (32.0-36.0); Mean Corpuscular Hemoglobin 26.9 pg (27.0-31.0); Mean Corpuscular Volume 82.3 fL (78.0-98.0); Mean Platelet Volume 9.6 fL (7.4-10.4); Platelet Count 216 thou/uL (130-400); RBC Distribution Width 14.6 % (11.5-14.5); Red Blood Cell (RBC) Count 4.93 mill/uL (4.20-5.40); White Blood Cell (WBC) Count 9.8 thou/uL (4.8-10.8)
[2020-03-31 17:29] LABS: ALT (SGPT) 7 U/L (8-55); AST (SGOT) 13 U/L (5-34); Albumin 4.4 g/dL (3.5-5.0); Alkaline Phosphatase 68 U/L (40-110); Anion Gap 12 mmol/L (10-20); BUN (Urea Nitrogen) 10 mg/dL (7.0-18.7); Bilirubin, Total 0.3 mg/dL (0.2-1.2); CRP (Inflammatory) 1.68 mg/dL (= or < 0.5); Calc. Creatinine Clearance 0 mL/min (70-130); Calcium 9.5 mg/dL (7.8-10.44); Carbon Dioxide 22 mmol/L (22-29); Chloride 105 mmol/L (98-107); Estimated GFR-MDRD 88; Globulin 4.2 g/dL (2.4-3.5); Glucose 91 mg/dL (70-105); Potassium 3.4 mmol/L (3.5-5.1); Protein, Total 8.6 g/dL (6.0-8.3); Sodium 136 mmol/L (136-145)
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
== END 2020-03-31 18:20 | disposition left against medical advice (07) ==
LOC: ERS 15:16
DX: S62.001A Unspecified fracture of navicular [scaphoid] bone of right wrist, initial encounter for closed fracture (principal); D64.9 Anemia, unspecified; X58.XXXA Exposure to other specified factors, initial encounter
CPT/HCPCS: 36415; 80053; 85025; 85652; 86140; 87040; 96374; J1885

== ENCOUNTER 2020-04-25 20:58 | Emergency (ER) | payer SELFPAY ==
[2020-04-25 21:42] LABS: Pregnancy Test - Urine (BHCG) Negative (Negative); Pregu Control Background? CLEAR/WHITE (CLR/WHITE); Pregu Control Bar Appear? YES (CONTROL BAR); Specific Gravity 1.008 (1.002-1.036)
[2020-04-25 21:43] LABS: Bilirubin Negative (Negative); Blood, Urine Negative (Negative); Clarity Clear (Clear); Glucose, Urine (Dipstick) Normal (Negative); Ketone, Urine Negative (Negative); Leukocyte 250 Leu/uL (Negative); Nitrite Negative (Negative); Protein, Urine (Dipstick) Negative (Neg-Trace); RBC/HPF 0-3 HPF (0-3); Specific Gravity, Urine 1.008 (1.002-1.036); Urobilinogen Normal mg/dL (Less than 2)
[2020-04-25 21:50] LABS: Bacteria/HPF 1+ HPF (None Seen)
== END 2020-04-25 22:02 | disposition home or self-care (01) ==
LOC: ERS 20:58
DX: Z20.2 Contact with and (suspected) exposure to infections with a predominantly sexual mode of transmission (principal); D64.9 Anemia, unspecified
CPT/HCPCS: 81003; 81015; 81025; 87077; 87086; 99283

== ENCOUNTER 2020-05-10 18:18 | Emergency (ER) | payer OTHER, SELFPAY | END 2020-05-10 19:39 | disposition left against medical advice (07) | LOC: ERS 18:18 | DX: Z53.21 Procedure and treatment not carried out due to patient leaving prior to being seen by health care provider (principal) ==

== ENCOUNTER 2020-08-27 13:45 | Emergency (ER) | payer OTHER, SELFPAY ==
[2020-08-27] MEDS ORDERED: Ketorolac Tromethamine 30 MG/ML VIAL ONE (14:35)
[2020-08-27 15:49] LABS: #Lymphocytes 1.6 thou/uL (1.20-3.40); #Monocytes 0.6 thou/uL (0.11-0.59); #Neutrophils 5.5 thou/uL (1.40-6.50); %Basophils 0.5 % (0.0-1.0); %Eosinophils 0.4 % (0.0-10.0); %Lymphocytes 20.5 % (21.0-51.0); %Monocytes 7.2 % (0.0-10.0); %Neutrophils 71.5 % (42.0-75.0); Hemoglobin 11.9 g/dL (12.0-16.0); Mean Corpuscular Hemoglobin 26.2 pg (27.0-31.0); Mean Corpuscular Volume 81.7 fL (78.0-98.0); Mean Platelet Volume 9.1 fL (7.4-10.4); Platelet Count 207 thou/uL (130-400); RBC Distribution Width 14.8 % (11.5-14.5); Red Blood Cell (RBC) Count 4.56 mill/uL (4.20-5.40); White Blood Cell (WBC) Count 7.7 thou/uL (4.8-10.8)
[2020-08-27 16:04] LABS: BHCG - Serum Negative (NEGATIVE); Pregs Control Background? CLEAR/WHITE (CLR/WHITE); Pregs Control Bar Appear? YES (CONTROL BAR)
[2020-08-27] MEDS ORDERED: Iopamidol-370 76% 500 ML 1 ML ONE (16:07)
[2020-08-27 16:08] LABS: ALT (SGPT) 9 U/L (8-55); AST (SGOT) 14 U/L (5-34); Albumin 3.9 g/dL (3.5-5.0); Alkaline Phosphatase 59 U/L (40-110); Anion Gap 12 mmol/L (10-20); BUN (Urea Nitrogen) 10 mg/dL (7.0-18.7); Bilirubin, Total 0.4 mg/dL (0.2-1.2); Calc. Creatinine Clearance 0 mL/min (70-130); Calcium 9.1 mg/dL (7.8-10.44); Carbon Dioxide 27 mmol/L (22-29); Chloride 102 mmol/L (98-107); Globulin 3.7 g/dL (2.4-3.5); Glucose 79 mg/dL (70-105); Potassium 4.1 mmol/L (3.5-5.1); Protein, Total 7.6 g/dL (6.0-8.3); Sodium 137 mmol/L (136-145)
--- NOTE | 2020-08-27 16:35 | CT ---
EXAM: CT NECK SOFT TISSUE POST CONTRAST: HISTORY:Left lower jaw swelling. Difficulty with speaking. COMPARISON:None CORRELATION:None FINDINGS: Brain parenchyma: No pathologic enhancement of the visualized brain parenchyma. Sinuses: Adequate aeration of the visualized paranasal sinuses and mastoid air cells. Orbits: Appropriate location of the ocular lenses. Symmetric attenuation the optic nerves and ocular rectus muscles. Retrobulbar fat is preserved. Nasopharynx:Adequate aeration. No mucosal abnormality. Mild fullness of the adenoid tonsils. Oral cavity:Aerodigestive tract is patent. No mucosal abnormality. Limited evaluation of the oral cav ity due to dental amalgam artifact. Midline fatty raphae of the tongue is preserved. No evidence of palatine tonsillar hypertrophy. There is soft tissue swelling and edema along the left mandible. Ther e is a small peripherally enhancing centrally hypodense lesion along the left mandible compatible with a small gingival/soft tissue abscess measuring 0.9 x 0.4 cm. The adjacent to demonstrates. Focal lucency. There is thinning of the margin of the mandible with a small defect, compatible with a periapical abscess involving the second premolar tooth (tooth #20) Hypopharynx: No mucosal abnormality. Epiglottis has a normal caliber. Preepiglottic fat is preserved .. Larynx: No mucosal abnormality with regards to the supraglottic, glottic and subglottic larynx. Paraspinal muscles: Symmetric attenuation of the paraspinal muscles and symmetric attenuation of the sternocleidomastoid muscles.. Parotid and salivary glands: Symmetric attenuation of the parotid and submandibular glands Vessels: No significant stenosis. Technique limits evaluation. Thyroid gland: Unremarkable. Spine: Vertebral body height is maintained. No fracture. No significant central canal stenosis or sig nificant neural foraminal narrowing. Limited evaluation due to technique. Lymph nodes: Enlarged left level 1 lymph node measuring 1.4 x 1.1 cm. Enlarged left level 2 lymph nod e measuring 1.4 x 1.1 cm. Lung apices and upper mediastinum: No acute abnormality. IMPRESSION: 1. Left facial soft tissue swelling and edema secondary to a left mandibular premolar tooth periapica l abscess. There is destruction of the medial left mandible cortex with adjacent peripherally enhancing collection compatible with a soft tissue/gingival abscess. 2. Reactive lymphadenopathy in the left neck. 3. Nonspecific fullness of the adenoid tonsil.
== END 2020-08-27 17:14 | disposition home or self-care (01) ==
LOC: ERS 13:45
DX: K04.7 Periapical abscess without sinus (principal); L03.211 Cellulitis of face; K03.81 Cracked tooth
CPT/HCPCS: 36415; 70491; 80053; 84703; 85025; 96372; J1885; Q9967

== ENCOUNTER 2020-08-29 13:57 | Emergency (ER) | payer SELFPAY | END 2020-08-29 15:28 | disposition home or self-care (01) | LOC: ERS 13:57 | DX: K04.7 Periapical abscess without sinus (principal); Z79.899 Other long term (current) drug therapy | CPT/HCPCS: 99281 ==

== ENCOUNTER 2020-09-08 17:27 | Emergency (ER) | payer SELFPAY ==
[2020-09-08 19:09] LABS: Bacteria/HPF None Seen HPF (None Seen); Bilirubin Negative (Negative); Blood, Urine Negative (Negative); Clarity Clear (Clear); Glucose, Urine (Dipstick) Normal (Negative); Ketone, Urine Negative (Negative); Leukocyte 75 Leu/uL (Negative); Nitrite Negative (Negative); Protein, Urine (Dipstick) Negative (Neg-Trace); RBC/HPF 0-3 HPF (0-3); Specific Gravity, Urine 1.017 (1.002-1.036); Urobilinogen Normal mg/dL (Less than 2); pH, Urine 7.5 (5.0-9.0)
[2020-09-08] MEDS ORDERED: Azithromycin 250 MG TAB ONE (19:29)
[2020-09-08] MEDS ORDERED: cefTRIAXone\\ROCEPHIN 250 MG VIAL ONE (19:30)
[2020-09-08] MEDS ORDERED: Lidocaine 1% (PF) 30 ML VIAL ONE (19:30)
[2020-09-10 15:47] LABS: Chlam.trachomatis by PCR,Urine DETECTED (NotDetected)
[2020-09-10 15:47] LABS: Chlamydia by PCR DETECTED (NotDetected); GC by PCR Not Detected (NotDetected)
== END 2020-09-08 20:08 | disposition home or self-care (01) ==
LOC: ERS 17:27
DX: N89.8 Other specified noninflammatory disorders of vagina (principal)
CPT/HCPCS: 81003; 81015; 87480; 87491; 87510; 87591; 87660; 96372; 99283; J0696; J2001

== ENCOUNTER 2020-09-11 21:25 | Emergency (ER) | payer SELFPAY ==
[2020-09-11] MEDS ORDERED: cefTRIAXone\\ROCEPHIN 250 MG VIAL ONE (21:35)
[2020-09-11] MEDS ORDERED: Azithromycin 250 MG TAB ONE (21:35)
[2020-09-11] MEDS ORDERED: Lidocaine 2% 10 ML INJ ONE (21:35)
[2020-09-11] MEDS ORDERED: Lidocaine 1% (PF) 30 ML VIAL ONE (21:36)
== END 2020-09-11 22:00 | disposition home or self-care (01) ==
LOC: ERS 21:25
DX: A64 Unspecified sexually transmitted disease (principal)
CPT/HCPCS: 96372; 99283; J0696; J2001

== ENCOUNTER 2020-09-18 19:07 | Emergency (ER) | payer SELFPAY | END 2020-09-18 19:55 | disposition home or self-care (01) | LOC: ERS 19:07 | DX: M54.5 Low back pain (principal); V89.2XXA Person injured in unspecified motor-vehicle accident, traffic, initial encounter | CPT/HCPCS: 99283 ==

== ENCOUNTER 2020-09-30 23:08 | Emergency (ER) | payer SELFPAY ==
[2020-09-30] MEDS ORDERED: Acetaminophen 500 MG TAB ONE (23:22)
[2020-09-30] MEDS ORDERED: Ondansetron ODT 4 MG TAB ONE (23:22)
[2020-09-30 23:39] LABS: Bacteria/HPF None Seen HPF (None Seen); Bilirubin Negative (Negative); Blood, Urine Negative (Negative); Clarity Clear (Clear); Glucose, Urine (Dipstick) Normal (Negative); Ketone, Urine 40 mg/dL (Negative); Leukocyte 75 Leu/uL (Negative); Nitrite Negative (Negative); Protein, Urine (Dipstick) 30 mg/dL (Neg-Trace); Specific Gravity, Urine 1.034 (1.002-1.036); Squamous Epithelial 21-50 HPF (0-3)
[2020-09-30 23:48] LABS: #Eosinphils 0.1 thou/uL (0.0-0.7); #Lymphocytes 2.2 thou/uL (1.20-3.40); #Monocytes 0.4 thou/uL (0.11-0.59); #Neutrophils 3.9 thou/uL (1.40-6.50); %Basophils 0.3 % (0.0-1.0); %Eosinophils 1.4 % (0.0-10.0); %Lymphocytes 33.1 % (21.0-51.0); %Monocytes 6.2 % (0.0-10.0); Hemoglobin 12.2 g/dL (12.0-16.0); Mean Corpuscular HGB CONC 32.3 g/dL (32.0-36.0); Mean Corpuscular Hemoglobin 26.6 pg (27.0-31.0); Mean Corpuscular Volume 82.6 fL (78.0-98.0); Mean Platelet Volume 9.3 fL (7.4-10.4); Platelet Count 211 thou/uL (130-400); RBC Distribution Width 14.3 % (11.5-14.5); Red Blood Cell (RBC) Count 4.58 mill/uL (4.20-5.40); White Blood Cell (WBC) Count 6.6 thou/uL (4.8-10.8)
[2020-10-01 00:06] LABS: ALT (SGPT) 8 U/L (8-55); AST (SGOT) 15 U/L (5-34); Alkaline Phosphatase 48 U/L (40-110); Anion Gap 14 mmol/L (10-20); BUN (Urea Nitrogen) 7 mg/dL (7.0-18.7); Bilirubin, Total 0.4 mg/dL (0.2-1.2); Calc. Creatinine Clearance 0 mL/min (70-130); Calcium 8.9 mg/dL (7.8-10.44); Carbon Dioxide 22 mmol/L (22-29); Chloride 104 mmol/L (98-107); Globulin 3.5 g/dL (2.4-3.5); Glucose 89 mg/dL (70-105); Potassium 3.8 mmol/L (3.5-5.1); Protein, Total 7.5 g/dL (6.0-8.3); Sodium 136 mmol/L (136-145)
== END 2020-10-01 00:09 | disposition left against medical advice (07) ==
LOC: ERS 23:08
DX: Z53.21 Procedure and treatment not carried out due to patient leaving prior to being seen by health care provider (principal)
CPT/HCPCS: 36415; 80053; 81003; 81015; 84702; 85025; 87086; Q0162

== ENCOUNTER 2020-10-03 12:54 | Emergency (ER) | payer OTHER | END 2020-10-03 13:38 | disposition home or self-care (01) | LOC: ERS 12:54 | DX: U07.1 COVID-19 (principal) | CPT/HCPCS: 71045; 87635; 93005; 99284; U0003 ==

== ENCOUNTER 2020-11-05 12:15 | Emergency (ER) | payer OTHER, SELFPAY ==
[2020-11-05] MEDS ORDERED: Ondansetron ODT 4 MG TAB ONE (12:28)
[2020-11-05] MEDS ORDERED: Acetaminophen 500 MG TAB ONE (12:28)
[2020-11-05 13:10] LABS: #Eosinphils 0.1 thou/uL (0.0-0.7); #Lymphocytes 1.4 thou/uL (1.20-3.40); #Monocytes 0.3 thou/uL (0.11-0.59); #Neutrophils 3.4 thou/uL (1.40-6.50); %Basophils 0.1 % (0.0-1.0); %Eosinophils 1.5 % (0.0-10.0); %Lymphocytes 26.9 % (21.0-51.0); %Neutrophils 65.6 % (42.0-75.0); Hemoglobin 12.9 g/dL (12.0-16.0); Mean Corpuscular HGB CONC 32.9 g/dL (32.0-36.0); Mean Corpuscular Hemoglobin 27.6 pg (27.0-31.0); Mean Corpuscular Volume 84.1 fL (78.0-98.0); Mean Platelet Volume 9.3 fL (7.4-10.4); Platelet Count 185 thou/uL (130-400); Red Blood Cell (RBC) Count 4.65 mill/uL (4.20-5.40); White Blood Cell (WBC) Count 5.2 thou/uL (4.8-10.8)
[2020-11-05 13:14] LABS: Bilirubin Negative (Negative); Blood, Urine Negative (Negative); Clarity Clear (Clear); Glucose, Urine (Dipstick) Normal (Negative); Ketone, Urine Negative (Negative); Leukocyte 75 Leu/uL (Negative); Nitrite Negative (Negative); Protein, Urine (Dipstick) 20 mg/dL (Neg-Trace); RBC/HPF 0-3 HPF (0-3); Specific Gravity, Urine 1.031 (1.002-1.036); Urobilinogen Normal mg/dL (Less than 2)
[2020-11-05 13:15] LABS: Bacteria/HPF 1+ HPF (None Seen)
--- NOTE | 2020-11-05 13:31 | ULT ---
TRANSABDOMINAL PELVIC ULTRASOUND WITH DOPPLER: Date: 11/05/2020 PROVIDED CLINICAL HISTORY: Pelvic cramping. FINDINGS: A single, live intrauterine gestation is documented, with crown-rump length corresponding to a 12 wee k and 3 day gestation. heart rate of 160 bpm is documented. The left ovary appears sonographica lly unremarkable. The right ovary is not visualized. Color Doppler and spectral analysis of the left ovarian waveform demonstrates normal flow. There is no significant free pelvic fluid. IMPRESSION: Single, live intrauterine gestation, 12 weeks 3 days by crown-rump length. POS: KHRIS
== END 2020-11-05 15:33 | disposition home or self-care (01) ==
LOC: ERS 12:15
DX: O26.891 Other specified pregnancy related conditions, first trimester (principal); R10.30 Lower abdominal pain, unspecified; O99.891 Other specified diseases and conditions complicating pregnancy; R11.0 Nausea; O99.011 Anemia complicating pregnancy, first trimester; D64.9 Anemia, unspecified; Z3A.12 12 weeks gestation of pregnancy
CPT/HCPCS: 36416; 76856; 81003; 81015; 85025; 86900; 86901; 87086; 93976; Q0162

== ENCOUNTER 2021-01-09 13:52 | Outpatient (CLI) | payer OTHER | END 2021-01-09 13:53 | disposition home or self-care (01) | LOC: BICULT 13:52 | PROVIDERS: ATTEND Family Medicine | DX: Z34.82 Encounter for supervision of other normal pregnancy, second trimester (principal) | CPT/HCPCS: 76805 ==

== ENCOUNTER 2021-06-12 | Emergency (ER) | payer OTHER | END 2021-06-12 15:45 | disposition home or self-care (01) ==

== ENCOUNTER 2021-07-05 16:45 | Emergency (ER) | payer OTHER ==
[2021-07-05 17:52] LABS: Bacteria/HPF None Seen HPF (None Seen); Bilirubin Negative (Negative); Blood, Urine 1+ (Negative); Clarity Clear (Clear); Glucose, Urine (Dipstick) Normal (Negative); Ketone, Urine Negative (Negative); Leukocyte 25 Leu/uL (Negative); Nitrite Negative (Negative); Protein, Urine (Dipstick) Negative (Neg-Trace); Specific Gravity, Urine 1.026 (1.002-1.036); pH, Urine 7.5 (5.0-9.0)
[2021-07-05 17:53] LABS: Pregnancy Test - Urine (BHCG) Negative (Negative); Pregu Control Background? CLEAR/WHITE (CLR/WHITE); Pregu Control Bar Appear? YES (CONTROL BAR); Specific Gravity 1.026 (1.002-1.036)
[2021-07-05] MEDS ORDERED: Acetaminophen 500 MG TAB ONE (18:19)
[2021-07-08 20:35] LABS: Chlamydia by PCR Not Detected (NotDetected); GC by PCR Not Detected (NotDetected)
== END 2021-07-05 19:49 | disposition home or self-care (01) ==
LOC: ERS 16:45
DX: N76.0 Acute vaginitis (principal)
CPT/HCPCS: 81003; 81015; 81025; 87480; 87491; 87510; 87591; 87660; 99284

== ENCOUNTER 2021-09-27 22:10 | Emergency (ER) | payer OTHER, BC ==
[2021-09-27] MEDS ORDERED: Ondansetron ODT 4 MG TAB ONE (22:45)
[2021-09-27] MEDS ORDERED: Lidocaine Viscous Sol 2% 15 ml UD Cup ONE (23:22)
[2021-09-27] MEDS ORDERED: Mag-Al 1200 mg/1200 mg/30 ML UDCUP ONE (23:22)
[2021-09-28 11:07] LABS: SARS-CoV-2 PCR by NAA DETECTED (NotDetected)
== END 2021-09-27 23:50 | disposition home or self-care (01) ==
LOC: ERS 22:10
DX: U07.1 COVID-19 (principal); R11.2 Nausea with vomiting, unspecified
CPT/HCPCS: 71045; Q0162; U0003; U0005

== ENCOUNTER 2021-09-29 14:02 | Emergency (ER) | payer OTHER, BC | END 2021-09-29 14:46 | disposition home or self-care (01) | LOC: ERS 14:02 | DX: U07.1 COVID-19 (principal) | CPT/HCPCS: 99283 ==

== ENCOUNTER 2022-03-18 18:42 | Emergency (ER) | payer OTHER, SELFPAY ==
[2022-03-18] MEDS ORDERED: Ondansetron ODT 4 MG TAB ONE (18:56)
[2022-03-18 19:48] LABS: Pregnancy Test - Urine (BHCG) POSITIVE (Negative); Pregu Control Background? CLEAR/WHITE (CLR/WHITE); Pregu Control Bar Appear? YES (CONTROL BAR); Specific Gravity 1.028 (1.002-1.036)
== END 2022-03-18 20:30 | disposition home or self-care (01) ==
LOC: ERS 18:42
DX: O21.9 Vomiting of pregnancy, unspecified (principal); Z3A.01 Less than 8 weeks gestation of pregnancy
CPT/HCPCS: 81025; 99284; Q0162

== ENCOUNTER 2022-03-20 13:42 | Emergency (ER) | payer OTHER, SELFPAY ==
[2022-03-20 14:11] LABS: #Eosinphils 0.1 thou/uL (0.0-0.7); #Lymphocytes 1.4 thou/uL (1.20-3.40); #Monocytes 0.4 thou/uL (0.11-0.59); #Neutrophils 2.7 thou/uL (1.40-6.50); %Basophils 0.8 % (0.0-1.0); %Eosinophils 1.6 % (0.0-10.0); %Neutrophils 58.7 % (42.0-75.0); Mean Corpuscular HGB CONC 31.5 g/dL (32.0-36.0); Mean Corpuscular Volume 76.4 fL (78.0-98.0); Mean Platelet Volume 9.8 fL (7.4-10.4); Platelet Count 217 thou/uL (130-400); RBC Distribution Width 15.8 % (11.5-14.5); Red Blood Cell (RBC) Count 4.56 mill/uL (4.20-5.40); White Blood Cell (WBC) Count 4.5 thou/uL (4.8-10.8)
[2022-03-20 14:28] LABS: ALT (SGPT) 8 U/L (8-55); AST (SGOT) 14 U/L (5-34); Albumin 3.8 g/dL (3.5-5.0); Alkaline Phosphatase 59 U/L (40-110); Anion Gap 12 mmol/L (10-20); BUN (Urea Nitrogen) 10 mg/dL (7.0-18.7); Bilirubin, Total 0.3 mg/dL (0.2-1.2); Calc. Creatinine Clearance 0 mL/min (70-130); Calcium 8.7 mg/dL (7.8-10.44); Carbon Dioxide 24 mmol/L (22-29); Chloride 104 mmol/L (98-107); Globulin 3.7 g/dL (2.4-3.5); Glucose 106 mg/dL (70-105); Potassium 3.8 mmol/L (3.5-5.1); Protein, Total 7.5 g/dL (6.0-8.3); Sodium 136 mmol/L (136-145)
[2022-03-20 14:48] LABS: Bacteria/HPF None Seen HPF (None Seen); Bilirubin Negative (Negative); Blood, Urine 3+ (Negative); Clarity Turbid (Clear); Glucose, Urine (Dipstick) Normal (Negative); Ketone, Urine Negative (Negative); Leukocyte 75 Leu/uL (Negative); Nitrite Negative (Negative); Protein, Urine (Dipstick) 50 mg/dL (Neg-Trace); RBC/HPF Greater than 50 HPF (0-3); Specific Gravity, Urine 1.033 (1.002-1.036); Squamous Epithelial 21-50 HPF (0-3); Urobilinogen Normal mg/dL (Less than 2)
[2022-03-20] MEDS ORDERED: Acetaminophen 500 MG TAB ONE (16:44)
== END 2022-03-20 17:45 | disposition home or self-care (01) ==
LOC: ERS 13:42
DX: O46.91 Antepartum hemorrhage, unspecified, first trimester (principal); Z3A.01 Less than 8 weeks gestation of pregnancy
CPT/HCPCS: 36415; 76856; 80053; 81003; 81015; 84702; 85025; 86900; 86901; 93976

== ENCOUNTER 2022-03-27 18:14 | Emergency (ER) | payer OTHER ==
[2022-03-27] MEDS ORDERED: Ondansetron PF 4 MG/2 ML Vial ONE (18:39)
[2022-03-27] MEDS ORDERED: Morphine 4 MG/ML VIAL ONE (18:39)
[2022-03-27] MEDS ORDERED: Ketorolac Tromethamine 30 MG/ML VIAL ONE (19:48)
== END 2022-03-27 20:16 | disposition home or self-care (01) ==
LOC: ERS 18:14
DX: S29.019A Strain of muscle and tendon of unspecified wall of thorax, initial encounter (principal); S49.92XA Unspecified injury of left shoulder and upper arm, initial encounter; S69.92XA Unspecified injury of left wrist, hand and finger(s), initial encounter; V80.010A Animal-rider injured by fall from or being thrown from horse in noncollision accident, initial encounter
CPT/HCPCS: 70450; 71045; 72125; 96374; 96375; J1885; J2270; J2405

== ENCOUNTER 2022-04-04 22:30 | Emergency (ER) | payer OTHER ==
[2022-04-04] MEDS ORDERED: Diazepam 5 MG TAB ONE (23:28)
== END 2022-04-05 00:07 | disposition home or self-care (01) ==
LOC: ERS 22:30
DX: M62.838 Other muscle spasm (principal); M25.512 Pain in left shoulder; R07.9 Chest pain, unspecified; M54.6 Pain in thoracic spine; V80.010A Animal-rider injured by fall from or being thrown from horse in noncollision accident, initial encounter
CPT/HCPCS: 71046

== ENCOUNTER 2022-05-02 14:48 | Emergency (ER) | payer BC, OTHER | END 2022-05-02 15:31 | disposition home or self-care (01) | LOC: ERS 14:48 | DX: R06.02 Shortness of breath (principal); R05.9 Cough, unspecified; R50.9 Fever, unspecified; Z20.822 Contact with and (suspected) exposure to COVID-19; M25.512 Pain in left shoulder | CPT/HCPCS: 99283; U0003; U0005 ==

== ENCOUNTER 2022-07-03 23:06 | Emergency (ER) | payer OTHER ==
[2022-07-03] MEDS ORDERED: Metoclopramide HCl 10 MG/2 ML VIAL ONE (23:28)
[2022-07-03] MEDS ORDERED: diphenhydrAMINE 50 MG/ML VIAL ONE (23:28)
[2022-07-04] MEDS ORDERED: Ketorolac Tromethamine 30 MG/ML VIAL ONE (01:13)
== END 2022-07-04 01:33 | disposition home or self-care (01) ==
LOC: ERS 23:06
DX: R51.9 Headache, unspecified (principal)
CPT/HCPCS: 70450; 96365; 96366; 96375; J1200; J1885; J2765

== ENCOUNTER 2022-07-23 23:29 | Emergency (ER) | payer SELFPAY | END 2022-07-24 00:58 | disposition left against medical advice (07) | LOC: ERS 23:29 | DX: Z53.21 Procedure and treatment not carried out due to patient leaving prior to being seen by health care provider (principal) ==

== ENCOUNTER 2022-08-08 16:51 | Emergency (ER) | payer BC | END 2022-08-08 18:44 | disposition left against medical advice (07) | LOC: ERS 16:51 | DX: Z53.21 Procedure and treatment not carried out due to patient leaving prior to being seen by health care provider (principal) ==